=== PATIENT | female | born 1995 | race Two or more races ===

== ENCOUNTER 2018-04-27 11:04 | Emergency (ER) | payer MEDICAID, OTHER ==
[~2018-04-27] VITALS: Ht 154.9 cm; Wt 77.1 kg
--- NOTE | 2018-04-27 11:04 | NUR ---
PT BIBA BLS TO BED 5
[2018-04-27 11:05] VITALS: BP 125/78
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
[2018-04-27 11:31] LABS: BASOPHILS % (AUTO) 0.2 % (0.0-2.0); EOSINOPHILS # (AUTO) 0.3 K/uL (0-0.4); EOSINOPHILS % (AUTO) 2.2 % (0.0-4.0); HEMATOCRIT 38.3 % (36-48); HEMOGLOBIN 12.2 g/dL (12.0-16.0); LYMPHOCYTES # (AUTO) 2.3 K/uL (2.5-16.5); LYMPHOCYTES % (AUTO) 16.4 % (20.5-51.1); MEAN CORPUSCULAR HEMOGLOBIN 28 pg (27-31); MEAN CORPUSCULAR HGB CONC 32 g/dL (33-37); MEAN CORPUSCULAR VOLUME 86.9 fL (80-94); MONOCYTES # (AUTO) 0.8 K/uL (0.8-1.0); MONOCYTES % (AUTO) 5.4 % (1.7-9.3); NEUTROPHILS # (AUTO) 10.5 K/uL (1.8-7.7); NEUTROPHILS % (AUTO) 75.8 % (42.2-75.2); PLATELET COUNT (AUTO) 336 K/uL (140-450); RED CELL DISTRIBUTION WIDTH 14.1 % (11.6-13.7); WHITE BLOOD COUNT (AUTO) 13.9 K/uL (4.8-10.8)
[2018-04-27 11:37] LABS: ANION GAP 3.3 (8-16); CARBON DIOXIDE 31.9 mmol/L (21-32); CHLORIDE 109 mmol/L (98-107); CREATININE 0.9 mg/dL (0.6-1.3); GFR ARICAN-AMERICAN 102 mL/min (>90); GLUCOSE 75 mg/dL (74-106); POTASSIUM 4.2 mmol/L (3.5-5.1); SODIUM SERUM 140 mmol/L (136-145); UREA NITROGEN, BLOOD 10 mg/dL (7-18)
[2018-04-27] MEDS ORDERED: QUEtiapine FUMARATE 25 MG TAB PO ONE (11:40)
--- NOTE | 2018-04-27 11:41 | NUR ---
REQUEST FOR TELEPSYCH ENTERED ASKED BY DR BOBBY
[2018-04-27 11:42] LABS: ALBUMIN 3.7 g/dL (3.4-5.0); ASPARTATE AMINOTRANSFERASE 15 U/L (15-37); TOTAL BILIRUBIN 0.4 mg/dL (0.0-1.0)
[2018-04-27 11:44] LABS: ACETAMINOPHEN < 0.5 ug/ml (10-30); SALICYLATE < 2.8 mg/dL (2.8-20.0)
[2018-04-27] MEDS ORDERED: QUEtiapine FUMARATE 25 MG TAB PO SCH (11:48)
--- NOTE | 2018-04-27 11:55 | NUR ---
TELEPSYCH CONSULT WITH DR VICTORIA STARTED
--- NOTE | 2018-04-27 12:01 | NUR ---
INFORMED PT SEVERAL TIME OF NEED OF UA. BEDSIDE COMMODE BY BEDSIDE.
--- NOTE | 2018-04-27 12:10 | NUR ---
Everton mcgee in [facility] - 04/27/18 at 1327 by FAIZAN patient using bedside commode. wood in room.
--- NOTE | 2018-04-27 12:20 | NUR ---
SPOKE WITH DR VICTORIA, RECOMMENDED FOR PT NOT TO BE RELEASED. AWAITING FAXED REPORT. INFORMED BUILDING CODE ADMINISTRATORGINGER GARCIA AND ER MD BOYD.
--- NOTE | 2018-04-27 12:55 | NUR ---
patient placed on 5155
[2018-04-27] MEDS ORDERED: LORazepam 2 MG/ML VIAL IM ONE ×2 (13:05→14:20)
[2018-04-27] MEDS ORDERED: diphenhydrAMINE 50 MG/ML VIAL IM ONE ×2 (13:05→14:20)
[2018-04-27] MEDS ORDERED: HALOPERIDOL IM 5 MG/ML VIAL IM ONE ×2 (13:05→14:20)
--- NOTE | 2018-04-27 13:10 | NUR ---
patient using bedside commode. rn in room.
--- NOTE | 2018-04-27 13:22 | NUR ---
patient exited room. patient sts "i dont want to stay here". informed patient that she is on a 5150 and can not leave. pt proceeded to emergency exit while staff followed her. pushed emergency exit open. and ran out of er to streets. [place] and security called. informed haylee wood and er md stout made aware.
[2018-04-27 13:40] LABS: BARBITURATE, URINE NEG. ng/ml (NEG <=200); BENZODIAZEPINE, URINE NEG. ng/mL (NEG <=200); CANNABINOID, URINE NEG. ng/mL (NEG <=50); COCAINE, URINE NEG. ng/mL (NEG <=300); OPIATE, URINE NEG. ng/mL (NEG <=2000); PHENCYCLIDINE SCREEN,URINE NEG. ng/mL (NEG <=25)
--- NOTE | 2018-04-27 14:18 | NUR ---
patient returned to rm 5 via [facility]. spoke with argelia huynh md and haylee rn, patient will returned to rm 5. patient with no change in condition or new complaints. pt aggressive, yelling, spitting at staff. pt arrived on four point restraints and continued on four point restraints per er md stout order. cms intact to all four extremitites. pulses +2 and cap refill < 3 secs to all four extremities.
--- NOTE | 2018-04-27 14:18 | NUR ---
patient changed into gown. all personal belongings removed. security by bedside. safety precautions in place. leo aguilera by bedside. near nursings station. will continue to monitor.
--- NOTE | 2018-04-27 14:18 | NUR ---
PT BIBA ALS AND TAKEN BACK TO BED 5 ON HARD RESTRAINTS
--- NOTE | 2018-04-27 15:31 | NUR ---
[facility] contacted the following facilities regarding placement: [facility] s/w Hemant: no beds available [facility] s/w Melinda: chart faxed [facility] s/w Joya: no beds available [facility] s/w Sidney: chart faxed [place] s/w ray: no beds available [facility]: no beds available [facility] s/w Sydni: no beds available
--- NOTE | 2018-04-27 15:40 | NUR ---
SPOKE TO MORRIS IN [facility]. PATIENT HAVE TO BE OFF 4 POINTS RESTRAINRS FOR 4 HRS. BEFORE ACCEPTING PATIENT. ERMD MADE AWARE AND PRIMARY NURSE MADE AWARE
--- NOTE | 2018-04-27 16:14 | NUR ---
Spoke with Shelia Silveira Rn. Gave report.
--- NOTE | 2018-04-27 16:18 | NUR ---
pt resting with eyes closed. safety precautions in place. sitter Wesley emt by bedside. near nursings station. will continue to monitor.
--- NOTE | 2018-04-27 16:18 | NUR ---
cms intact to all four extremitites. pulse +2 and cap refill < 3 secs to all four extremities. skin is warm/dry/color apprioriate for ethnicity.
--- NOTE | 2018-04-27 16:18 | NUR ---
Note undone in EDM - 04/27/18 at 1640 by FAIZAN patient changed into gown. all personal belongings removed. security by bedside. safety precautions in place. leo aguilera by bedside. near nursings station. will continue to monitor.
--- NOTE | 2018-04-27 17:18 | NUR ---
pt resting with eyes closed. safety precautions in place. sitter Wesley emt by bedside. near nursings station. will continue to monitor.
--- NOTE | 2018-04-27 18:00 | NUR ---
pt resting with eyes closed. safety precautions in place. sitter Wesley emt by bedside. near nursings station. will continue to monitor.
--- NOTE | 2018-04-27 18:03 | NUR ---
[facility] ARRIVED FOR PT TRANSFER TO [facility]
--- NOTE | 2018-04-27 18:03 | NUR ---
Patient to be transferred to [facility]. Is being transferred due to higher level of care. Receiving facility has accepting physician and available space. ER physician has signed transfer form. Patient or responsible green party has agreed to transfer and signed form. Patient belongings inventoried and will be sent with patient. Copy of nursing notes, lab reports, EKG, Physicians Orders and X-rays to be sent with patient. Report called to Shelia Silveira RN at receiving facility. [facility] ambulance service has been called for transfer. ETA is 5 mins.
[2018-04-27 18:09] VITALS: BP 117/60
== END 2018-04-27 18:03 | disposition short-term general hospital (02) ==
LOC: MED 11:04
DX: R44.0 Auditory hallucinations (principal); R45.6 Violent behavior
CPT/HCPCS: 36415; 80053; 80305; 81025; 85025; 93005; 96372; 99285; G0480; G0482; J1200; J1630; J2060

== ENCOUNTER 2020-08-11 07:12 | Inpatient (IN) | payer MEDICAID, SELFPAY ==
[~2020-08-11] VITALS: Ht 165.1 cm; Wt 73.5 kg
[2020-08-11] MEDS ORDERED: LORazepam 2 MG/ML VIAL ONE (07:15)
--- NOTE | 2020-08-11 07:16 | NUR ---
Patient BIBA to bed 6 at this time.
--- NOTE | 2020-08-11 07:29 | NUR ---
24 Y/O FEMALE BIBA FROM STREETS FOR ABNORMAL BEHAVIOR. PT REMOVED FROM [place] FOR ABNORMAL BEHAVIOR S/P METH USE. PT ADMITS TO METH USE LAST NIGHT. PT FOLLOWS COMMANDS, NOT COMBATIVE, RE-ORIENTED. NO FEVER/CHILLS, NO N/V, NO SOB. PMH: BIPOLAR NKA
--- NOTE | 2020-08-11 07:30 | NUR ---
Dr. Stein at pt bedside for further evaluation.
[2020-08-11] MEDS ORDERED: diphenhydrAMINE 50 MG/ML VIAL IM ONE (07:35)
[2020-08-11] MEDS ORDERED: LORazepam 2 MG/ML VIAL IM ONE (07:35)
--- NOTE | 2020-08-11 08:07 | NUR ---
social services technician at pt bedside.
[2020-08-11 08:20] LABS: BASOPHILS # (AUTO) 0.1 K/uL (0.00-0.22); BASOPHILS % (AUTO) 0.4 % (0.0-2.0); HEMATOCRIT 26.5 % (36-48); HEMOGLOBIN 8.9 g/dL (12.0-16.0); LYMPHOCYTES # (AUTO) 2.5 K/uL (2.5-16.5); LYMPHOCYTES % (AUTO) 13.1 % (20.5-51.1); MEAN CORPUSCULAR HEMOGLOBIN 27 pg (27-31); MEAN CORPUSCULAR HGB CONC 34 g/dL (33-37); MEAN CORPUSCULAR VOLUME 79.5 fL (80-94); MONOCYTES # (AUTO) 2.3 K/uL (0.8-1.0); MONOCYTES % (AUTO) 11.9 % (1.7-9.3); NEUTROPHILS # (AUTO) 14.3 K/uL (1.8-7.7); NEUTROPHILS % (AUTO) 74.6 % (42.2-75.2); PLATELET COUNT (AUTO) 620 K/uL (140-450); RED BLOOD CELL COUNT(AUTO) 3.33 MIL/uL (4.20-5.40); RED CELL DISTRIBUTION WIDTH 15.1 % (11.6-13.7); WHITE BLOOD COUNT (AUTO) 19.2 K/uL (4.8-10.8)
--- NOTE | 2020-08-11 08:30 | NUR ---
Pt sleeping, visible rise and fall of chest, will continue to monitor.
[2020-08-11 08:38] LABS: ALBUMIN 3.3 g/dL (3.4-5.0); ANION GAP 16.6 (8-16); ASPARTATE AMINOTRANSFERASE 154 U/L (15-37); CARBON DIOXIDE 25.2 mmol/L (21-32); CHLORIDE 96 mmol/L (98-107); GFR ARICAN-AMERICAN 88 mL/min (>90); GLUCOSE 82 mg/dL (74-106); SALICYLATE 3.8 mg/dL (2.8-20.0); SODIUM SERUM 135 mmol/L (136-145); TOTAL BILIRUBIN 0.9 mg/dL (0.0-1.0); UREA NITROGEN, BLOOD 25 mg/dL (7-18)
[2020-08-11 08:40] LABS: POTASSIUM 2.8 mmol/L (3.5-5.1)
[2020-08-11 08:58] LABS: ACETAMINOPHEN < 0.5 ug/ml (10-30)
[2020-08-11] MEDS ORDERED: KCL 20 MEQ/WATER INJ PREMIX 100 ML IV ONE (09:00)
[2020-08-11] MEDS ORDERED: POTASSIUM CHLORIDE 20% 40 MEQ/15 ML UDC PO ONE (09:00)
[2020-08-11] MEDS ORDERED: NACL 0.9% 1,000 ML IV ONE (09:20)
[2020-08-11] MEDS ORDERED: LORazepam 2 MG/ML VIAL IVP ONE ×2 (10:20→10:30)
--- NOTE | 2020-08-11 10:55 | NUR ---
Everton mcgee in ED - 08/11/20 at 1100 by [facility]1 Pt taken to CT via [place]c[facility].
--- NOTE | 2020-08-11 11:17 | NUR ---
WALKED UA SPECIMEN GAVE TO MARY CROWN BUFFER.
[2020-08-11 12:11] LABS: BARBITURATE, URINE NEGATIVE ng/ml (NEG <=200); BENZODIAZEPINE, URINE NEGATIVE ng/mL (NEG <=200); CANNABINOID, URINE NEGATIVE ng/mL (NEG <=50); COCAINE, URINE NEGATIVE ng/mL (NEG <=300); OPIATE, URINE NEGATIVE ng/mL (NEG <=2000); PHENCYCLIDINE SCREEN,URINE NEGATIVE ng/mL (NEG <=25)
--- NOTE | 2020-08-11 12:17 | NUR ---
PATIENT TAKEN TO CT VIA BRAD
--- NOTE | 2020-08-11 12:24 | NUR ---
Pt taken to ER bed 6 via stewrmohinder.
[2020-08-11 12:37] LABS: APPEARANCE,URINE CLEAR (CLEAR); BILIRUBIN,URINE NEGATIVE (NEGATIVE); BLOOD, URINE NEGATIVE (NEGATIVE); COLOR,URINE YELLOW (YELLOW); LEUKOCYTE ESTERASE ,URINE NEGATIVE (NEGATIVE); NITRITE, URINE NEGATIVE (NEGATIVE); UGLUCOSE NEGATIVE (NEGATIVE)
[2020-08-11] MEDS ORDERED: MULTIVITAMIN-12 10 ML, THIAMINE 100 MG, MAGNESIUM SULFATE 50% 2,000 MG, FOLIC ACID 1 MG... IV STA ×10 (12:40→12:51)
[2020-08-11] MEDS ORDERED: THIAMINE 200 MG/2 ML VIAL IV ONE (12:40)
--- NOTE | 2020-08-11 13:15 | NUR ---
REPORT RECIEVED FROM GINGER CHI FOR CONTINUITY OF CARE FOLLOWING CHANGE IN BED#.
--- NOTE | 2020-08-11 13:16 | NUR ---
Patient moved to bed 4 via [facility] at this time.
--- NOTE | 2020-08-11 14:04 | NUR ---
Patient appears to be resting comfortably in bed. Respirations even and unlabored. VISIBLE RISE AND FALL OF CHEST. NO NOTED DISTRESS AT THIS TIME.
--- NOTE | 2020-08-11 14:40 | NUR ---
ERMD AT BEDSIDE.
--- NOTE | 2020-08-11 15:05 | NUR ---
CLINTON ELY NARES COLLECTED AND WALKED TO LAB.
[2020-08-11] MEDS ORDERED: POTASSIUM CHL 40 MEQ/ D5-1/2NS 1,000 ML IV ONE (15:25)
--- NOTE | 2020-08-11 15:54 | NUR ---
Patient will be admitted to care of MD IAN. Admited to TELEMETRY. Will go to room 107A. Belongings list completed. Report to GINGER LEDEZMA.
[2020-08-11] MEDS ORDERED: POTASSIUM CHLORIDE 40 MEQ, LIDOCAINE MPF 1% 25 MG in NACL 0.9% 250 ML IV SCH (16:00)
--- NOTE | 2020-08-11 16:05 | NUR ---
PATIENT TAKEN TO [facility] TELEMETRY VIA BRAD WITH SHUKRI MILES AND RODRIGUE CHAVIRA. Addendum: 08/11/20 [facility] 1615 [facility] MED[facility] BAG HAND GIVEN TO GINGER LEDEZMA.
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
[2020-08-11 16:58] VITALS: BP 126/76
[2020-08-11] MEDS ORDERED: DOCUSATE SODIUM 100 MG GELCAP PO PRN (17:40)
[2020-08-11] MEDS ORDERED: HYDROcodone/APAP 7.5/325 MG 1 TAB PO PRN (17:40)
[2020-08-11] MEDS ORDERED: guaiFENesin DM 200/20 MG-10 ML 10 ML UDC PO PRN (17:40)
[2020-08-11] MEDS ORDERED: ACETAMINOPHEN 325 MG TAB PO PRN (17:40)
[2020-08-11] MEDS ORDERED: ONDANSETRON 4 MG/2 ML VIAL IM/IVP PRN (17:40)
[2020-08-11] MEDS ORDERED: ZOLPIDEM 5 MG TAB PO PRN (17:40)
[2020-08-11] MEDS ORDERED: LORazepam 2 MG/ML VIAL IVP PRN (17:50)
[2020-08-11] MEDS ORDERED: HALOPERIDOL IM 5 MG/ML VIAL IM PRN (17:50)
[2020-08-11 18:08] LABS: PROTHROMBIN TIME 12.5 secs (10.8-13.4)
--- NOTE | 2020-08-11 18:44 | NUR ---
PT ASLEEP IN BED. NO APPARENT DISTRESS
--- NOTE | 2020-08-11 19:20 | NUR ---
RECEIVED REPORT FROM AM NURSE. PT ASLEEP , NO ACUTE DISTRESS NOTED AT THIS TIME. WILL CONTINUE TO MONITOR.
[2020-08-11 20:00] VITALS: BP 120/82
--- NOTE | 2020-08-11 20:34 | NUR ---
SCHEDULED MEDICATION ADMINISTERED ORDERED BY .
[2020-08-11 22:23] LABS: CHOL/HDL RATIO 2.8 (1-4.5); PHOSPHORUS 3.6 mg/dL (2.5-4.9)
[2020-08-11 22:24] LABS: FREE T4 (FREE THYROXINE) 1.33 ng/dL (0.76-1.46); THYROID STIMULATING HORMONE 1.06 uIU/mL (0.34-3.74)
[2020-08-11 22:33] LABS: MAGNESIUM 2.4 mg/dL (1.8-2.4)
[2020-08-12] VITALS: BP 116/83
[2020-08-12 04:00] VITALS: BP 108/62
[2020-08-12] MEDS ORDERED: POTASSIUM CHLORIDE 40 MEQ, LIDOCAINE MPF 1% 25 MG in NACL 0.9% 250 ML IV PRN (06:30)
[2020-08-12 06:40] LABS: BASOPHILS % (AUTO) 0.3 % (0.0-2.0); EOSINOPHILS # (AUTO) 0.2 K/uL (0-0.4); EOSINOPHILS % (AUTO) 1.6 % (0.0-4.0); HEMOGLOBIN 9.2 g/dL (12.0-16.0); LYMPHOCYTES # (AUTO) 3.1 K/uL (2.5-16.5); LYMPHOCYTES % (AUTO) 30.8 % (20.5-51.1); MEAN CORPUSCULAR HEMOGLOBIN 27 pg (27-31); MEAN CORPUSCULAR HGB CONC 33 g/dL (33-37); MEAN CORPUSCULAR VOLUME 80.7 fL (80-94); MONOCYTES # (AUTO) 1.1 K/uL (0.8-1.0); MONOCYTES % (AUTO) 10.7 % (1.7-9.3); NEUTROPHILS # (AUTO) 5.7 K/uL (1.8-7.7); NEUTROPHILS % (AUTO) 56.6 % (42.2-75.2); PLATELET COUNT (AUTO) 565 K/uL (140-450); RED BLOOD CELL COUNT(AUTO) 3.47 MIL/uL (4.20-5.40); RED CELL DISTRIBUTION WIDTH 14.7 % (11.6-13.7); WHITE BLOOD COUNT (AUTO) 10.1 K/uL (4.8-10.8)
[2020-08-12 07:06] LABS: ANION GAP 10.2 (8-16); CARBON DIOXIDE 26.7 mmol/L (21-32); CREATININE 0.7 mg/dL (0.6-1.3)
[2020-08-12 07:08] LABS: T4 (THYROXINE) 7.5 ug/dL (4.5-12.0)
--- NOTE | 2020-08-12 07:15 | NUR ---
ENDORSED TO AM NURSE FOR CONTINUITY OF CARE. PT IS STABLE
--- NOTE | 2020-08-12 07:20 | NUR ---
RECEIVED BEDSIDE REPORT FROM NIGHTSHIFT NURSE FOR CONTINUITY OF CARE.
[2020-08-12 07:47] LABS: POTASSIUM 2.9 mmol/L (3.5-5.1)
[2020-08-12 08:00] VITALS: BP 108/58
--- NOTE | 2020-08-12 08:42 | NUR ---
PATIENT HAS BEEN SCREENED AND CATEGORIZED LOW NUTRITION RISK. PATIENT WILL BE SEEN WITHIN 7 DAYS OF ADMISSION. 08/18/[address]
[2020-08-12] MEDS ORDERED: POTASSIUM CHLORIDE 10 MEQ TABER PO SCH (09:00)
[2020-08-12] MEDS: QUEtiapine FUMARATE 25 MG TAB PO SCH ×3 (09:08→17:01)
[2020-08-12] MEDS: PANTOPRAZOLE 40 MG TABEC PO SCH (09:09)
--- NOTE | 2020-08-12 09:15 | NUR ---
ADMINISTERED PRESCRIBED MEDS PER MD ORDER. PATIENT TOLERATED WELL. MEDICATION EDUCATION PROVIDED. PATIENT VERBALIZED UNDERSTANDING. PATIENT AOx3. DENIES PAIN/NAUSEA/VOMITTING. NO SOB. SAFETY MEASURES IN PLACE. WILL CONTINUE TO MONITOR.
[2020-08-12 12:00] VITALS: BP 104/55
--- NOTE | 2020-08-12 13:28 | NUR ---
ADMINISTERED PRESCRIBED MEDS PER MD ORDER. PATIENT TOLERATED WELL. MEDICATION EDUCATION PROVIDED. PATIENT VERBALIZED UNDERSTANDING. SAFETY MEASURES IN PLACE. WILL CONTINUE TO MONITOR.
--- NOTE | 2020-08-12 14:55 | NUR ---
PATIENT ROUNDING PERFORMED. PATIENT SLEEPING IN BED, STATED NOT FEELING WELL. DENIES PAIN/SOB. PATIENT SKIN WARM TO TOUCH. CHECKED TEMP, 98.1. SAFETY MEASURES IN PLACE. WILL CONTINUE TO MONITOR.
[2020-08-12 16:00] VITALS: BP 106/58
--- NOTE | 2020-08-12 17:07 | NUR ---
ADMINISTERED PRESCRIBED MEDS PER MD ORDER. PATIENT TOLERATED WELL. MEDICATION EDUCATION PROVIDED. PATIENT VERBALIZED UNDERSTANDING. SAFETY MEASURES IN PLACE. WILL CONTINUE TO MONITOR.
--- NOTE | 2020-08-12 18:45 | NUR ---
PATIENT HAS 2 OPEN BLISTER WOUNDS ON BOTTOM OF LEFT FOOT. AREA CLEANSED, DRIED AND FOAM DRESSING APPLIED. PATIENT TOLERATED WELL, SAFETY MEASURES IN PLACE. WILL CONTINUE TO MONITOR.
--- NOTE | 2020-08-12 19:20 | NUR ---
RECEIVED BEDSIDE REPORT FROM DAY SHIFT NURSE FOR CONTINUITY OF CARE. PT IS AWAKE AND ALERT. SPEAKING APPROPRIATELY. ON RA WITH BREATHING UNLABORED. ON TELE MONITORING. AMBULATORY WITH ASSISTANCE WITH FALL PRECAUTIONS IN PLACE. WOUNDS ON FEET BILATERALLY WITH DRY DRESSING INTACT ON LEFT FOOT. RASH ON INNER THIGHS NOTED, WET MACHINE OPERATOR. WOUND CARE EVAL PENDING. SKIN IS WARM AND DRY. NO IV IS PRESENT. WILL PLACE IV SOON POSSIBLE. PT IS STABLE AT THIS TIME. DENIES PAIN. STANDARD PRECAUTIONS IN PLACE. WILL CONTINUE TO MONITOR.
--- NOTE | 2020-08-12 19:22 | NUR ---
BEDSIDE REPORT PROVIDED TO NIGHTSHIFT NURSE FOR CONTINUITY OF CARE
[2020-08-12 20:00] VITALS: BP 101/55
--- NOTE | 2020-08-12 21:14 | NUR ---
MOTHER JACQUELINE CADE HAS CALLED TWICE WHILE IN ANOTHER PT'S ROOM. CALLED BACK AFTER OBTAINING VERBAL CONSENT FROM PT TO GIVE INFORMATION TO MOTHER. JACQUELINE CADE [phone].
--- NOTE | 2020-08-12 21:25 | NUR ---
SPOKE TO MOTHER FOR AN EXTENSIVE AMOUNT OF TIME. ALL QUESTIONS ANSWERED. PT IS STABLE AT THIS TIME.
--- NOTE | 2020-08-12 22:15 | NUR ---
NEW IV PLACED IN THE RIGHT HAND 22 GAUGE ON THE FIRST ATTEMPT. IV IS PATENT AND FLUSHING. IV ABX WAS STARTED AND PT DENIES ANY PAIN AT THE IV SITE.
[2020-08-12] MEDS ORDERED: cefTRIAXone 1,000 MG VIAL ONE (22:25)
[2020-08-13] VITALS: BP 104/53
--- NOTE | 2020-08-13 00:26 | NUR ---
ROUNDED ON PT. SHE IS ASLEEP IN SEMI FOWLERS POSITION. NO RESPIRATORY DISTRESS NOTED. IV IS PATENT AND INTACT. NO DISTRESS OR PAIN NOTED. WILL CONTINUE TO MONITOR. BED ALARM ON.
--- NOTE | 2020-08-13 01:59 | NUR ---
PT ASLEEP. NO DISTRESS NOTED. ON RA WITH BREATHING UNLABORED. BED IS IN THE LOWEST POSITION AND CALL LIGHT WITHIN REACH. IV IS INTACT. WILL CONTINUE TO MONITOR.
[2020-08-13 04:00] VITALS: BP 112/64
--- NOTE | 2020-08-13 04:00 | NUR ---
PT IS UP TO THE RESTROOM WITH ASSISTANCE. PT HAD A BM. GAIT IS UNSTEADY. PT WAS GIVEN A SNACK REQUESTED. DENIES PAIN AT THIS TIME. PT IS STABLE.
--- NOTE | 2020-08-13 06:00 | NUR ---
PT IS SLEEPING. BREATHING IS UNLABORED ON RA. IV IS PATENT AND SALINE LOCKED. NO DISTRESS NOTED. BED IN LOWEST POSITION.
[2020-08-13 06:20] LABS: BASOPHILS % (AUTO) 0.3 % (0.0-2.0); EOSINOPHILS # (AUTO) 0.2 K/uL (0-0.4); EOSINOPHILS % (AUTO) 1.8 % (0.0-4.0); HEMATOCRIT 23.7 % (36-48); HEMOGLOBIN 7.8 g/dL (12.0-16.0); LYMPHOCYTES # (AUTO) 2.2 K/uL (2.5-16.5); MEAN CORPUSCULAR HEMOGLOBIN 26 pg (27-31); MEAN CORPUSCULAR HGB CONC 33 g/dL (33-37); MEAN CORPUSCULAR VOLUME 79.9 fL (80-94); MONOCYTES % (AUTO) 9.2 % (1.7-9.3); NEUTROPHILS # (AUTO) 7.5 K/uL (1.8-7.7); NEUTROPHILS % (AUTO) 68.7 % (42.2-75.2); PLATELET COUNT (AUTO) 477 K/uL (140-450); RED BLOOD CELL COUNT(AUTO) 2.96 MIL/uL (4.20-5.40); RED CELL DISTRIBUTION WIDTH 15.3 % (11.6-13.7); WHITE BLOOD COUNT (AUTO) 10.9 K/uL (4.8-10.8)
[2020-08-13 07:03] LABS: CARBON DIOXIDE 25.8 mmol/L (21-32); CREATININE 0.6 mg/dL (0.6-1.3); POTASSIUM 3.8 mmol/L (3.5-5.1)
--- NOTE | 2020-08-13 07:30 | NUR ---
ENDORSED PT TO DAY SHIFT NURSE FOR CONTINUITY OF CARE. PT IS STABLE. PLAN OF CARE DISCUSSED.
--- NOTE | 2020-08-13 07:35 | NUR ---
RECEIVED BEDSIDE ENDORSEMENT FROM NIGHTSSDFT NURSE FOR CONTINUITY OF CARE.
[2020-08-13 08:00] VITALS: BP 114/56
--- NOTE | 2020-08-13 08:42 | NUR ---
RECEIVED FNS CONSULT FOR WOUNDS/PRESSURE INJURIES.
[2020-08-13] MEDS: QUEtiapine FUMARATE 25 MG TAB PO SCH ×2 (08:44→13:52)
--- NOTE | 2020-08-13 08:46 | NUR ---
ADMINISTERED PRESCRIBED MEDS PER MD ORDER. PATIENT TOLERATED WELL. MEDICATION EDUCATION PROVIDED. PATIENT VERBALIZED UNDERSTANDING. PATIENT IN BED EATING BREAKFAST. COMPLAINS OF 8/10 NECK PAIN/SORENESS. SAFETY MEASURES IN PLACE. WILL CONTINUE TO MONITOR.
[2020-08-13] MEDS: PANTOPRAZOLE 40 MG TABEC PO SCH (09:00)
[2020-08-13] MEDS ORDERED: CEPH250C16 PO (10:16)
[2020-08-13] MEDS ORDERED: QUET25TA PO (10:16)
[2020-08-13 11:11] VITALS: BP 108/58
--- NOTE | 2020-08-13 13:16 | NUR ---
Social Service Note: EXCELLENCE SPECIALIST met with pt at bedside to discuss discharge plans. Pt states that she is homeless. Pt reports using meth 2-3 times a week. Pt states that she is going to go home with her mother. EXCELLENCE SPECIALIST was called to lobby to meet with pt's mother and godmother. Pt's mother and godmother state that pt was at [facility] over a year ago and was in the process of being placed on conservatorship; pt's family state that pt was discharged before the process was complete. Pt's family reports that for the last year patient has been homeless and in and out of halfway and hospitals. Pt's mother states that pt cannot return home to pt's mother's house due to pt's behavior in the past. EXCELLENCE SPECIALIST spoke with pt about her options. Pt states that she will return to the streets. EXCELLENCE SPECIALIST spoke with pt about homeless resources and resources for substance abuse treatment. Pt states that she is open to treatment. EXCELLENCE SPECIALIST offered to call 211 with pt and find available treatment. Pt became upset and stated that she just wanted to discharge. EXCELLENCE SPECIALIST allowed pt some space. EXCELLENCE SPECIALIST returned to pt's room and asked if pt had a discharge location so that transportation could be arranged if patient wanted. Pt then stated that she would be open to voluntary treatment. EXCELLENCE SPECIALIST spoke with pt about the different inpatient treatment options. Pt states that she would like to go to [facility] for a voluntary assessment for treatment. Taxi transportation has been arranged by warehouse lead. Pt has been provided with a meal. Pt has weather appropriate clothing. Homeless waiver was given to nurse to have pt sign. Pt was provided with homeless resources and substance abuse treatment resources. Pt is agreeable to being taken to [facility] for voluntary assessment. EXCELLENCE SPECIALIST will remain available for support and will follow up as needed.
--- NOTE | 2020-08-13 14:02 | NUR ---
ADMINISTERED PRESCRIBED MEDS PER MD ORDER. PATIENT TOLERATED WELL. MEDICATION EDUCATION PROVIDED. PATIENT VERBALIZED UNDERSTANDING. SAFETY MEASURES IN PLACE. WILL CONTINUE TO MONITOR.
--- NOTE | 2020-08-13 14:28 | NUR ---
PATIENT IS DISCHARGED. PATIENT GATHERED ALL PERSONAL BELONGINGS. REMOVED IV LINE/ID BAND AND TELE MONITOR. PATIENT AGREED TO VOLUNTARY CHECK IN TO [facility]. [employer]AX[employer] SERVICE PICKED PATIENT UP, SIGNED VOUCHER AND COPY GIVEN TO MAINTENANCE SHOP WELDER. PATIENT IS STABLE.
--- NOTE | 2020-08-14 08:07 | NUR ---
WOUND CONSULT NOT DONE, PT. DISCHARGED.
== END 2020-08-13 14:30 | disposition home or self-care (01) | DRG 812 ==
LOC: MED 07:12 → MTU 15:11
PROVIDERS: ADMIT Family Medicine; ATTEND Family Medicine
DX: T43.621A Poisoning by amphetamines, accidental (unintentional), initial encounter (principal); G92 Toxic encephalopathy; R65.10 Systemic inflammatory response syndrome (SIRS) of non-infectious origin without acute organ dysfunction; F20.9 Schizophrenia, unspecified; F29 Unspecified psychosis not due to a substance or known physiological condition; E87.6 Hypokalemia; Z20.822 Contact with and (suspected) exposure to COVID-19; F31.9 Bipolar disorder, unspecified; D64.9 Anemia, unspecified; E86.0 Dehydration; E78.2 Mixed hyperlipidemia; G31.9 Degenerative disease of nervous system, unspecified; F15.920 Other stimulant use, unspecified with intoxication, uncomplicated; Z59.0 Homelessness
CPT/HCPCS: 36415; 70450; 71045; 80048; 80053; 80305; 81003; 82150; 83036; 83690; 83735; 83880; 84100; 84436; 84439; 84443; 84479; 84484; 85025; 85610; 85730; 87081; 96365; 96366; 96367; 96372; 96375; 99291; A9153; C1758; G0480; J0696; J1200; J2001; J2060; J3411; J3475; J3480; J3490; J7030; J7060